=== PATIENT | female | born 1955 | race Caucasian/White ===

== ENCOUNTER → 2018-08-06 | Outpatient (CLI) | payer BC | LOC: MC.RAD 16:08 | DX: Z12.31 Encounter for screening mammogram for malignant neoplasm of breast (principal) ==

== ENCOUNTER 2019-05-23 09:51 | Emergency (ER) | payer BC ==
[~2019-05-23] VITALS: Ht 157.5 cm; Wt 67.7 kg
[2019-05-23 09:54] VITALS: BP 163/83; PULSE 60; TEMP 97.1
[2019-05-23] MEDS ORDERED: SYNTHROID 0.0.025 MG PO (10:13)
[2019-05-23] MEDS ORDERED: NORCO 325 MG-51 TAB PO (11:12)
== END 2019-05-23 11:50 | disposition home or self-care (01) ==
LOC: COL.ER 09:51
DX: S92.511A Displaced fracture of proximal phalanx of right lesser toe(s), initial encounter for closed fracture (principal); Z85.3 Personal history of malignant neoplasm of breast; W22.8XXA Striking against or struck by other objects, initial encounter; Y92.009 Unspecified place in unspecified non-institutional (private) residence as the place of occurrence of the external cause

== ENCOUNTER → 2019-08-26 | Outpatient (CLI) | payer BC ==
[~2019-08-26] MED LIST: NORCO 325 MG-51 TAB PO; SYNTHROID 0.0.025 MG PO
== END ==
LOC: COL.RAD 14:31
DX: R06.02 Shortness of breath (principal); R79.89 Other specified abnormal findings of blood chemistry; Z86.718 Personal history of other venous thrombosis and embolism; Z90.12 Acquired absence of left breast and nipple
CPT/HCPCS: Q9967

== ENCOUNTER → 2019-10-12 | Outpatient (CLI) | payer BC | LOC: MC.RAD 10-06 11:45 | DX: Z12.31 Encounter for screening mammogram for malignant neoplasm of breast (principal) ==